=== PATIENT | male | born 1985 | race Caucasian/White ===

== ENCOUNTER 2019-06-19 12:19 | Emergency (ER) | payer OTHER ==
[~2019-06-19] VITALS: Wt 77.3 kg
[~2019-06-19 12:19] MED LIST: ELIM TOP
[2019-06-19 13:00] VITALS: BP 132/74; PULSE 88; RESP 20
== END 2019-06-19 14:23 | disposition home or self-care (01) ==
LOC: E/R 12:19 → FTE 14:23
DX: R21 Rash and other nonspecific skin eruption (principal); F17.210 Nicotine dependence, cigarettes, uncomplicated; Z59.0 Homelessness
CPT/HCPCS: 99282